=== PATIENT | female | born 1985 | race Caucasian/White ===

== ENCOUNTER 2019-08-13 15:33 | Outpatient (CLI) | payer OTHER, SELFPAY ==
--- NOTE | ~2019-08-13 | MM_ITS ---
EXAMINATION: MM screening ailyn BI w eliud HISTORY: Screening mammogram TECHNIQUE: Craniocaudal and mediolateral oblique 3-D tomosynthesis images were obtained and synthetic 2-D images were generated. CAD analysis was submitted and interpreted. COMPARISON: None, baseline BREAST PARENCHYMAL COMPOSITION: The breasts are heterogeneously dense, which may obscure small masses . FINDINGS: RIGHT BREAST: An asymmetry is present in the posterior third of the central breast on the craniocauda l view. LEFT BREAST: There is no evidence of suspicious mass, calcification, or architectural distortion to s uggest malignancy. IMPRESSION: 1. Right breast asymmetry on the craniocaudal view. 2. Additional mammographic views and possible breast ultrasound are recommended to evaluate for jennifer jimenez and establish a baseline given that this is the first mammographic examination. BI-RADS Category 0: Incomplete: Needs additional imaging evaluation. Reviewed, dictated and finalized at location A. IMPRESSION: 1. Right breast asymmetry on the craniocaudal view. 2. Additional mammographic views and possible breast ultrasound are recommended to evaluate for malignancy and establish a baseline given that this is the fir st mammographic examination. BI-RADS Category 0: Incomplete: Needs additional imaging evaluation.
== END 2019-08-13 15:34 | disposition home or self-care (01) ==
LOC: ANHIMG 15:38
PROVIDERS: PCP Internal Medicine; Visit Provider Surgery Plastic and Reconstructive Surgery
DX: Z12.31 Encounter for screening mammogram for malignant neoplasm of breast (principal); R92.8 Other abnormal and inconclusive findings on diagnostic imaging of breast
CPT/HCPCS: 77063; 77067

== ENCOUNTER 2019-09-13 13:02 | Outpatient (CLI) | payer OTHER, SELFPAY ==
--- NOTE | ~2019-09-13 | MMUS_ITS ---
EXAMINATION: MM diagnostic mammo unilat RT, US breast RT complete HISTORY: Asymmetry reported in right breast on 08/13/2019 screening craniocaudal view TECHNIQUE: Additional 3-D tomosynthesis images of the right breast were performed and synthetic 2-D i mages were generated. CAD analysis was submitted and interpreted. Rolled medial and rolled lateral cr aniocaudal views. High resolution complete right breast ultrasound was performed. COMPARISON: 08/13/2019 bilateral digital screening mammogram FINDINGS: MAMMOGRAPHIC FINDINGS: There is heterogeneously dense breast stroma which may obscure masses. No reproducible mass or architectural distortion is appreciated. ULTRASOUND: There is no evidence of focal abnormal solid or cystic lesion or abnormal shadowing of the right madhav st. IMPRESSION: 1. No mammographic evidence of malignancy 2. Routine annual mammographic screening is recommended BI-RADS Category 1: Negative Reviewed, dictated and finalized at location A. IMPRESSION: 1. No mammographic evidence of malignancy 2. Routine annual mammographic screening is recommended BI-RADS Category 1: Negative
== END 2019-09-13 13:03 | disposition home or self-care (01) ==
LOC: ANHIMG 13:04
PROVIDERS: PCP Internal Medicine; Visit Provider Surgery Plastic and Reconstructive Surgery
DX: R92.2 Inconclusive mammogram (principal)
CPT/HCPCS: 76641; 77065

== ENCOUNTER 2019-10-29 00:08 | Outpatient (CLI) | payer OTHER, SELFPAY ==
[2019-10-29 17:31] LABS: SARS-CoV-2 RNA PCR Negative
== END 2019-10-29 00:09 | disposition home or self-care (01) ==
LOC: ANHCOVIDDT 00:09
PROVIDERS: PCP Internal Medicine; Visit Provider Surgery Plastic and Reconstructive Surgery
DX: Z01.812 Encounter for preprocedural laboratory examination (principal); Z20.828 Contact with and (suspected) exposure to other viral communicable diseases
CPT/HCPCS: 87635; C9803; U0003

== ENCOUNTER 2019-10-31 05:28 | Day surgery (SDC) | payer OTHER, SELFPAY ==
[2019-10-24 16:34] VITALS: BMI 23.4
[2019-10-31] VITALS (8 sets, daily range): BP systolic 111–118; BP diastolic 69–80; PULSE 54–94; RESP 12–20; TEMP 36.2–36.6; O2SAT 97–100; BMI 23.6
--- NOTE | 2019-10-31 06:41 | WPDANESEPPF ---
Anes - Initial Pre Proc Eval Procedure: Operation Date: 10/31/19 07:30 Proposed Procedures p Bilateral Augmentation Mammoplasty - Nathanael Stahl MD Date/Time: 10/31/19 06:41 Surgeon: Nathanael Stahl MD Pre Op Diagnosis: Micromastia Patient Data Age: 34 Gender: F Height: 5 ft 6 in Weight: 66.5 kg Last Vital Signs Temp 36.6 C 10/31/19 06:20 Pulse 73 10/31/19 06:20 Resp 16 10/31/19 06:20 BP 114/71 10/31/19 06:20 Pulse Ox 100 10/31/19 06:20 Allergies Allergy/AdvReac Type Severity Reaction Status Date / Time levofloxacin Allergy Intermediate Weakness Verified 10/31/19 06:36 gluten Allergy Unknown unknown Verified 10/31/19 06:36 Home Medications Medication Instructions Recorded Confirmed Type bupropion HCl 300 mg 24 hr tablet, 300 mg PO QAM 08/07/19 10/31/19 History extended release dextroamphetamine-amphetamine 10 10 mg PO DAILY 08/07/19 10/31/19 History mg tablet dextroamphetamine-amphetamine ER 20 mg PO PRN PRN 08/07/19 10/31/19 History 20 mg 24hr capsule,extend release carisoprodol 350 mg tablet 350 mg PO TID PRN #21 tablet 10/22/19 10/31/19 Rx docusate sodium 100 mg capsule 100 mg PO DAILY #14 cap 10/22/19 10/31/19 Rx ondansetron HCl 4 mg tablet 4 mg PO Q8H #28 tablet 10/22/19 10/31/19 Rx oxycodone-acetaminophen 5 mg-325 1 tablet PO Q6H PRN #15 tablet 10/22/19 10/31/19 Rx mg tablet Flonase Allergy Relief 2 spr/day BID 10/24/19 10/31/19 History Patient hx anesthesia problems: other (motion sickness) Family hx anesthesia problems: none PMFSH Surgical History Surgical History History of hysterectomy Feb Social History Social History Smoking status: Former smoker Tobacco type: cigarettes Alcohol intake: current Substance use: never Anes - Eval Final PreProcedure Day of Procedure 10/31/19 06:41 Patient weight: normal Heart: regular rate and rhythm Lungs: clear to auscultation Airway: Mallampati scale class 1 Neurological: alert and oriented Last oral intake: >/= 8 hours ASA classification: II Emergent: no Anesthetic plan: proceed Anesthesia type and monitoring: general LMA and standard monitoring Other findings: TIVA Informed Consent: The patient's anesthetic plan and its attendant risks and benefits were discussed with the patient/family/POA. Questions were solicited and answers provided to the satisfaction of the patient/family/POA.
[2019-10-31] MEDS: LACTATED RINGERS 1,000 ML 30 ML IV CONT (06:45)
[2019-10-31] MEDS: SCOPOLAMINE 1.5 MG PATCH TRANSDERM (06:57)
--- NOTE | 2019-10-31 07:16 | P.OP_ITS ---
Procedure Note - Detailed Date of procedure: 10/31/19 Pre-op diagnosis: Micromastia Post-op diagnosis: same Procedure performed: Bilateral Breast Augmentation Description of procedure: She is here today for bilateral breast augmentation. Previously and again today the risks, benefits, alternatives were discussed in extensive detail. I wanted her to be very realistic about the risks involved as well as expectations. We discussed aftercare and what to monitor for. Made sure answered all of her questions to her satisfaction today and consent was obtained. Marked in the preoperative holding area with their verification. The patient w as taken to the operating room placed supine on the operating table. Anesthesia was provided by anesthesiology. A surgical time-out was taken. We cleansed the skin and 1% lidocaine and 0.25% Marcaine with epinephrine was used anesthetize as a field block. She was prepped and draped in a standard sterile fashion. Tegaderm nipple Esteves were placed. A 15 blade used to make an incision along the inframammary fold. Dissection was continued at 45 degree angle until the chest wall as identified. I the right I elevated to the level of the nipple subglandular. I incised the pectoralis major along its inferior border and completely released the inferior border leaving the medial border intact. I created a subpectoral pocket in the appropriate dimensions based on our preoperative planning for the implant. I then copiously irrigated with saline solution and verified a strict hemostasis. Next the use a triple antibiotic and Betadine containing solution to irrigate the pocket. I washed my gloves with the triple antibiotic and Betadine solution. We washed the implant immediately upon opening it with this solution and only opened it when we needed it. I used implant funnel and no-touch technique. The implant was introduced into the pocket using the funnel. Having verified positioning of the implant this was closed using 2-0 Vicryl followed by 3-0 Monocryl in a running subcuticular 4-0 Monocryl followed by tissue glue. Fluffs, Lance wrap, and surgical bra were placed. Patient was awoke and taken to PACU without difficulty. All instrument sponge counts were correct at the end of the case. Implants: 320cc Natrelle Inspira SoftTouch Right: REF SSLP-320 SN [id number] Left: REF SSLP-320 SN [id number] Anesthesia: GLMA Surgeon: Nathanael Stahl MD Estimated blood loss (mL): 5 Drains: No Packing: No Pathology: none sent Complications: No immediate complications Condition: stable Disposition: PACU Findings: Right dual plane 2/3 Left dual plane 1
--- NOTE | 2019-10-31 07:16 | WPDHPUPDATE1 ---
History and Physical Update Update Date/Time: 10/31/19 07:16 History and Physical has been reviewed, including an updated exam of the patient. There are NO changes in the patient's condition. Risks, benefits, and alternatives have been discussed and questions answered. Patient agrees to proceed with procedure.
--- NOTE | 2019-10-31 07:18 | SUR.PREOP ---
0705; DR HEREDIA MARKED PT. RN IN ROOM.
[2019-10-31] MEDS: ceFAZolin 2 GM/D5W 50 ML 2 GM/50 ML BAG IVPB (07:22)
[2019-10-31] MEDS: LIDO 1%/EPINEPHRINE 1:100,000 20 ML VIAL 40 ML INFILTRATE (07:40)
--- NOTE | 2019-10-31 10:36 | SUR.PHASEII ---
PT'S MOTHER CALLED WHEN PT ARRIVED FROM PACU. PT'S MOM TO START TO COME TO HOSPITAL. PT DRESSED NOW. AWAITING MOM TO PICK HER UP.
== END 2019-10-31 11:06 | disposition home or self-care (01) ==
PROVIDERS: PCP Internal Medicine; Visit Provider Surgery Plastic and Reconstructive Surgery
PROC: (CPT 19325; principal; 2019-10-31 07:30)
DX: Z41.1 Encounter for cosmetic surgery (principal); Z87.891 Personal history of nicotine dependence
CPT/HCPCS: 19325; A9270; J0131; J0690; J1100; J1580; J2250; J2405; J2704; J3010; J7120